=== PATIENT | female | born 1955 | race African-American/Black ===

== ENCOUNTER 2019-04-12 14:58 | Emergency (ER) | payer SELFPAY ==
[~2019-04-12] VITALS: Ht 172.7 cm; Wt 85.3 kg
[2019-04-12] MEDS ORDERED: NORVASC10 MG ORAL (15:19)
[2019-04-12] MEDS ORDERED: ALTACE5 MG ORAL (15:19)
[2019-04-12 15:30] VITALS: BP 125/69
--- NOTE | 2019-04-12 15:30 | NUR ---
ED Nurse Note: pt walked in due to Hemorrhoid for 2 weeks. pt complains of 3/10 pain. denies diarrhe, denies vomiting. pt is seen by sofia arias. will continue to monitor
[2019-04-12] MEDS ORDERED: RAMIPRIL5 MG ORAL (15:52)
[2019-04-12] MEDS ORDERED: ANUSOL-HC25 MG RECTAL (15:52)
[2019-04-12 16:00] VITALS: BP 125/69
--- NOTE | 2019-04-12 16:00 | NUR ---
ER DISCHARGE NOTE: Patient is cleared to be discharged per ERMD, pt is aox4, on room air, with stable vital signs. pt was given dc and prescription instructions, pt was able to verbalize understanding, pt id band removed without complications. pt is able to ambulate with steady gait. pt took all belongings.
--- NOTE | 2019-04-12 16:36 | NUR ---
Note loanmlio in EDM - 04/12/19 at 1636 by JUDY ER DISCHARGE NOTE: Patient is cleared to be discharged per ERMD, pt is aox4, on room air, with stable vital signs. pt was given dc and prescription instructions, pt was able to verbalize understanding, pt id band removed without complications. pt is able to ambulate with steady gait. pt took all belongings.
--- NOTE | 2019-04-14 14:13 | Emergency Room Report ---
History of Present Illness General Chief Complaint: General Complaint Source: Patient Present Illness HPI 63-year-old female presents ED for evaluation. Stating that she is having rectal pain. History of hemorrhoids. Said the pain for the last 2 weeks. Notes 7 out of 10, nonradiating. Denies rectal bleeding. Denies any abdominal pain. No other aggravating relieving factors. Denies any other associated symptoms Allergies: Coded Allergies: No Known Allergies (Unverified , 04/12/19) Patient History Past Medical History: HTN Past Surgical History: none Pertinent Family History: none Social History: Denies: smoking, alcohol use, drug use Now: No Immunizations: UTD Reviewed Nursing Documentation: PMH: Agreed; PSxH: Agreed Nursing Documentation-PMH Hx Hypertension: Yes Review of Systems All Other Systems: negative except mentioned in HPI Physical Exam Vital Signs Date Time Temp Pulse Resp B/P (MAP) Pulse Ox O2 Delivery O2 Flow Rate FiO2 04/12/19 15:14 98.2 82 19 125/69 (87) 92 Room Air Sp02 EP Interpretation: reviewed, normal General Appearance: no apparent distress, alert, GCS 15, non-toxic Head: normocephalic, atraumatic Eyes: bilateral eye normal inspection, bilateral eye PERRL ENT: hearing grossly normal, normal pharynx, no angioedema, normal voice Neck: full range of motion, supple/symm/no masses Respiratory: chest non-tender, lungs clear, normal breath sounds, speaking full sentences Cardiovascular #1: regular rate, rhythm, no edema Cardiovascular #2: 2+ carotid (R), 2+ carotid (L), 2+ radial (R), 2+ radial (L) , 2+ dorsalis pedis (R), 2+ dorsalis pedis (L) Gastrointestinal: normal bowel sounds, non tender, soft, non-distended, no guarding, no rebound Rectal: hemorrhoids Genitourinary: normal inspection, no CVA tenderness Musculoskeletal: back normal, gait/station normal, normal range of motion, non- tender Neurologic: alert, oriented x3, responsive, motor strength/tone normal, sensory intact, speech normal Psychiatric: judgement/insight normal, memory normal, mood/affect normal, no suicidal/homicidal ideation Reflexes: 3+ bicep (R), 3+ bicep (L), 3+ tricep (R), 3+ tricep (L), 3+ knee (R) , 3+ knee (L) Lymphatic: no adenopathy Medical Decision Making Diagnostic Impression: Primary Impression: Hemorrhoids Qualified Codes: K64.9 - Unspecified hemorrhoids Additional Impression: Hypertension Qualified Codes: I10 - Essential (primary) hypertension ER Course Hospital Course 63 yo F presents to ED c/o hemorrhoids. stating her BP is high Differential diagnoses include: internal hemorrhoids, external hemorrhoids, anal fissure, constipation Clinical course Patient placed on stretcher in ED. After initial history physical exam reveals a middle aged female in no acute distress. Upon rectal exam there is good rectal tonem no gross blood noted at the rectum. not actively bleeding. There is fullness on rectal exam with tenderness consistent with an internal hemorrhoid. In triage BP in the 120s. Reassurance given to patient. Patient states that she takes ramipril and will provide her with a refill of her medication. Patient states she does not have a PMD at this time but is scheduled to have one at the beginning of the month through her insurance. We will also provide prescription for suppository. Safe for discharge for close outpatient follow-up Diagnosis - hypertension, hemorrhoids Stable and discharged to home with prescription for Anusol suppository, Ramipril. Instructed to take warm soaks in top 3 times a day for 10-15 minutes. Patient instructed to followup with PMD. Patient instructed to return to ED if symptoms recur or worsen Last Vital Signs Date Time Temp Pulse Resp B/P (MAP) Pulse Ox O2 Delivery O2 Flow Rate FiO2 04/12/19 16:00 98.2 88 19 125/69 92 Room Air Status: improved Disposition: HOME, SELF-CARE Condition: Stable Scripts Hydrocortisone Acetate* (ANUSOL-HC*) 25 Mg Supp.rect 1 SUPP RECTAL TWICE A DAY, #10 SUPP Prov: Long Lovett MD 04/12/19 Ramipril* (RAMIPRIL*) 5 Mg Capsule 5 MG ORAL DAILY, #30 CAP 0 Refills Prov: Long Lovett MD 04/12/19 Referrals: NOT CHOSEN IPA/,REFERRING (PCP) Martine Allen [facility]. [facility] Patient Instructions: Hemorrhoids, [id number] Long Lovett MD Apr 14, 2019 14:13
== END 2019-04-12 16:00 | disposition home or self-care (01) ==
LOC: EMR 15:48
DX: K64.9 Unspecified hemorrhoids (principal); I10 Essential (primary) hypertension
CPT/HCPCS: 99282